=== PATIENT | male | born 2000 | race African-American/Black ===

== ENCOUNTER 2019-03-24 19:45 | Emergency (ER) | payer OTHER ==
[~2019-03-24] VITALS: Ht 190.5 cm; Wt 79.4 kg
[2019-03-24 20:01] VITALS: BP 130/85
--- NOTE | 2019-03-24 20:03 | NUR ---
PT AMBULATED TO LOBBY WITH STEADY GAIT
--- NOTE | 2019-03-24 20:21 | NUR ---
PT TAKEN TO BED 10
[2019-03-24] MEDS ORDERED: IBUPROFEN 600 MG TAB ONE (21:05)
== END 2019-03-24 21:30 | disposition home or self-care (01) ==
LOC: MED 19:45
DX: S01.511A Laceration without foreign body of lip, initial encounter (principal); Y08.89XA Assault by other specified means, initial encounter; Y93.89 Activity, other specified; Y92.89 Other specified places as the place of occurrence of the external cause; Y99.8 Other external cause status
CPT/HCPCS: 90715; 99283